=== PATIENT | female | born 1995 | race Hispanic/Latino ===

== ENCOUNTER → 2017-12-22 13:55 | Outpatient (CLI) | payer SELFPAY ==
[2017-12-22 17:51] LABS: Chlamydia Trachomatis by PCR Negative (Negative); Neisserai gonorrhoeae by PCR Negative (Negative); Probe Check PASS; Sample Adequacy Control PASS; Specimen Processing Control PASS
[2017-12-29 11:59] LABS: HPV Reflexed? NOT INDICATED
== END ==
PROVIDERS: Visit Provider Obstetrics & Gynecology
DX: Z12.4 Encounter for screening for malignant neoplasm of cervix (principal)
CPT/HCPCS: 87491; 87591; 88175; G0145

== ENCOUNTER → 2018-11-02 13:52 | Outpatient (CLI) | payer SELFPAY ==
[2018-11-02 16:10] LABS: Chlamydia Trachomatis by PCR Negative (Negative); Neisserai gonorrhoeae by PCR Negative (Negative); Probe Check PASS; Sample Adequacy Control PASS; Specimen Processing Control PASS
[2018-11-06 19:55] LABS: HPV Reflexed? NOT INDICATED
== END ==
PROVIDERS: Visit Provider Obstetrics & Gynecology
DX: Z34.81 Encounter for supervision of other normal pregnancy, first trimester (principal); Z12.4 Encounter for screening for malignant neoplasm of cervix; Z11.3 Encounter for screening for infections with a predominantly sexual mode of transmission
CPT/HCPCS: 87491; 87591; 88175; G0145

== ENCOUNTER → 2018-11-16 11:48 | Outpatient (CLI) | payer SELFPAY ==
[2018-11-16 13:42] LABS: Absolute Lymphocyte Count 1.61 X10^3/ul (0.83-4.51); Absolute Neutrophil Count 5.8 X10^3/uL (2.0-7.7); Basophil# 0.02 X10^3/uL; Basophil% 0.3 % (0-1); Eosinophil# 0.02 X10^3/uL; Eosinophils% 0.3 % (0-5); Hemoglobin 13.5 g/dl (12.0-15.0); Lymphocyte # 1.61 X10^3/ul (4.0); Lymphocyte % 20.4 % (19-41); Mean Corp Hgb Conc 33.8 g/gl (32-36); Mean Corpuscular Hgb 31.2 pg (27.0-32.0); Mean Corpuscular Volume 92.4 fL (81-99); Mean Platelet Vol. 9.2 fl (6.2-12.0); Monocyte# 0.44 X10^3/uL; Monocyte% 5.6 % (0-10); Neutrophil # 5.77 X10^3/uL (2.7-7.7); Platelet Count 237 K/mm3 (150-450); RBC Distribution Width CV 12.4 % (11.6-14.6); RBC Distribution Width SD 41.5 fl (35.1-43.9); Red Blood Count 4.33 M/mm3 (4.2-5.4); White Blood Count 7.9 K/mm3 (4.4-11.0)
[2018-11-16 13:43] LABS: Color, Urine Yellow (Yellow); Glucose, Dipstick Normal (Normal); Ketone-Dipstick Negative (Negative); Leukocyte Esterase-Dipstick Negative /ul (Negative); Nitrite-Dipstick Negative (Negative); Occult Blood-Urine Negative /ul (Negative); POSITIVE COUNT NO; POSITIVE DIFFERENTIAL NO; POSITIVE MORPHOLOGY NO; Protein-Dipstick 15 mg/dl (Negative); Specific Gravity, Urine 1.015 (1.002-1.030); Urine Bilirubin Dipstick Negative (Negative); Urine Clarity Clear (Clear); Urine Urobilinogen Normal (Normal)
[2018-11-16 13:58] LABS: Amphetamine Urine VISTA NEGATIVE (<1000 ng/mL); Barbiturate Urine VISTA NEGATIVE (< 200 ng/mL); Benzodiazepine Urine VISTA NEGATIVE (< 200 ng/mL); Cocaine Urine VISTA NEGATIVE (< 300 ng/mL); Ecstacy Urine VISTA NEGATIVE (< 500 ng/mL); Methadone Urine VISTA NEGATIVE (< 300 ng/mL); PCP Urine VISTA NEGATIVE (< 25 ng/mL); THC Urine VISTA NEGATIVE (< 50 ng/mL); Vista UDS pH Range 7
[2018-11-16 14:04] LABS: Thyroid Stim Hormone (TSH) 0.98 uIU/mL (0.358-3.74)
[2018-11-16 14:44] LABS: HIV - WCH Non-Reactive (Nonreactive); Rubella IgG 37.7 IU/mL
[2018-11-17 11:25] LABS: HEPATITIS B SURFACE AG Negative (Negative); Hep C Antibodies <0.1 s/co ratio (0.0-0.9)
[2018-11-19 01:10] LABS: Prenatal RPR NONREACTIVE (NONREACTIVE)
--- OUTSIDE RECORDS SUMMARY | 2019-01-18 15:42 | XMS RPT_ITS ---
:1995 Author Organization OHIP Care Team Providers Name Role Phone Alvina Jo Attending Unavailable Alvina Jo Unavailable Alvina Jo Unavailable PROBLEMS PROBLEMS DATE TYPE CONDITION / CODE ATTENDING STATUS SOURCE 11/16/2018 Unknown Z34.81 - Encounter Alvina Jo Active [place] for supervision of Community other normal Hospital , first Repository trimester / Z34.81(ICD-10) 11/03/2018 Unknown Z12.4 - Encounter Alvina Jo Active [place] for screening for Community malignant neoplasm Hospital of cervix / Repository Z12.4(ICD-10) 11/03/2018 Unknown Z11.3 - Encounter Alvina Jo for screening for Community infections with a Hospital predominantly Repository sexual mode of transmission / Z11.3(ICD-10) PROCEDURES PROCEDURES No Procedure Records FoundRESULTS RESULTS URINE DRUG SCREEN Collected: 11/16/2018 Status: F Source: [place] ([place]) 11:51 AM [facility] HOSPITAL REPOSITORY Order Comment: List of Drugs Taken or Suspected? UNK TYPE CODE TESTS RESULT OUT OF RANGE REFERENCE UNITS LAB L505.0075 TO BE Normal CONFIRMED Result Comment: CONFIRMATORY TESTING FOR ALL POSITIVE URINE DRUG SCREEN RESULTS WILL ONLY BE SENT OUT UPON PHYSICIAN ORDER. VISTA Urine Drug Screen methods provide only preliminary analytical test results. A more specific alternate chemical method must be used in order to obtain a confirmed analytical result. Gas chromatography/mass spectrometery (GC/MS) is the preferred confirmatory method. Clinical consideration and professional judgement should be applied to any drug of abuse test result, particularly when preliminary positive results are used. URINE TCA TESTING MUST BE ORDERED SEPARATELY. USE TEST MNEMONIC: [facility] LAB L505.5005 VISTA UDS PH 7 Normal LAB L505.5015 <1000 ng/mL AMPHETAMINES Normal NEGATIVE LAB L505.5025 < 200 ng/mL BARBITIURATES Normal NEGATIVE LAB L505.5035 < 200 ng/mL BENZODIAZIPINE Normal NEGATIVE LAB L505.5045 < 300 ng/mL COCAINE Normal NEGATIVE LAB L505.5055 < 500 ng/mL ECSTACY Normal NEGATIVE LAB L505.5065 < 300 ng/mL METHADONE Normal NEGATIVE LAB L505.5075 < 300 ng/mL OPIATES Normal NEGATIVE LAB L505.5085 < 25 ng/mL PCP Normal NEGATIVE LAB L505.5095 < 50 ng/mL THC Normal NEGATIVE Performed By: #### L505.5000 #### [facility] [address] [place], [address] CBC W/DIFF, AUTOMATED Collected: 11/16/2018 Status: F Source: [place] 11:51 AM [facility] REPOSITORY TYPE CODE TESTS RESULT OUT OF RANGE REFERENCE UNITS LAB L100.1000 4.4-11.0 K/mm3 Normal WBC 7.9 LAB L100.1200 4.2-5.4 M/mm3 Normal RBC 4.33 LAB L100.1300 12.0-15.0 g/dl Normal HGB 13.5 LAB L100.1400 37-47 % Normal HCT 40.0 LAB L100.1500 81-99 fL Normal MCV 92.4 LAB L100.1600 27.0-32.0 pg Normal MCH 31.2 LAB L100.1700 32-36 g/gl Normal MCHC 33.8 LAB L100.1810 11.6-14.6 % Normal RDW CV 12.4 LAB L100.1820 35.1-43.9 fl Normal RDW SD 41.5 LAB L100.1900 150-450 K/mm3 Normal PLT 237 LAB L100.2000 6.2-12.0 fl Normal MPV 9.2 LAB L100.2100 47-70 % High NEUT% 73.0 LAB L100.2200 19-41 % Normal LY% 20.4 LAB L100.2300 0-10 % Normal MONO% 5.6 LAB L100.2400 0-5 % Normal EO% 0.3 LAB L100.2500 0-1 % Normal BASO% 0.3 LAB L100.2550 0.0-0.9 % Normal IM GRAN % 0.400 Result Comment: IG% - Immature Granulocytes (promyelocytes, myelocytes and metamyelocytes) > 1% indicates that a LEFT SHIFT is Present. LAB L100.2620 2.0-7.7 X10 3/uL Normal Absolute Neut 5.8 LAB L100.2720 0.83-4.51 X10 3/ul Normal Absolute Lymph 1.61 Performed By: #### L100.0100 #### [facility] [address] [facility] [place], [place], [address] URINALYSIS, ROUTINE Collected: 11/16/2018 Status: F Source: [place] (DIPSTICK) 11:51 AM [facility] REPOSITORY Order Comment: How was Urine Obtained? Urine, Random TYPE CODE TESTS RESULT OUT OF RANGE REFERENCE UNITS LAB L400.3000 Yellow COLOR Normal Yellow LAB L400.3050 Clear Normal CLARITY Clear LAB L400.3200 Normal mg/dl Normal GLUCOSE, UR Normal LAB L400.3300 Negative mg/dL Normal BILIRUBIN URINE Negative LAB L400.3400 Negative mg/dl Normal KETONE UR Negative LAB L400.3465 1.002-1.030 Normal SP.GR. DIPSTX 1.015 LAB L400.3550 5.0 - 8.0 pH UR Normal 8.0 LAB L400.3600 Negative mg/dl High PROT 15 DIPSTX LAB L400.3700 Normal mg/dl Normal UROBILI Normal LAB L400.3750 Negative Normal NITRITE UR Negative LAB L400.3780 Negative /ul Normal OCCULT BLOOD-UR Negative LAB L400.3800 Negative /ul LEUK Normal ESTERASE Negative Performed By: #### L400.2010 #### [facility] [address] [place], [place], [address] THYROID STIM HORMONE Collected: 11/16/2018 Status: F Source: [place] (TSH) 11:51 AM [facility] REPOSITORY TYPE CODE TESTS RESULT OUT OF RANGE REFERENCE UNITS LAB L501.9520 0.358-3.74 uIU/mL Normal TSH 0.98 Performed By: #### L501.9520 #### [facility] [address] [place], [address] RUBELLA IGG Collected: 11/16/2018 Status: F Source: [place] 11:51 AM [facility] REPOSITORY TYPE CODE TESTS RESULT OUT OF RANGE REFERENCE UNITS LAB L509.4000 IU/mL Normal Rubella IgG 37.7 Result Comment: Antibody results Interpretation of Immune Status < 5 IU/ml Presumed Non-immune 5 - < 10 IU/ml Equivocal > or = 10 IU/ml Presumed Immune Performed By: #### L509.4000, L3890.6005 #### [facility] [address] [place], [address] HIV - [facility] Collected: 11/16/2018 Status: F Source: [place] 11:51 AM [facility] REPOSITORY TYPE CODE TESTS RESULT OUT OF RANGE REFERENCE UNITS LAB L3890.6005 Nonreactive Normal HIV - [facility] Non-Reactive Performed By: #### L509.4000, L3890.6005 #### [facility] [place], [address] T AND S-NO Collected: 11/16/2018 Status: F Source: [place] CHARGE W/PNP 11:51 AM [facility] REPOSITORY Order Comment: Reason for Type AND Screen/Red Cells: Surgery? N TYPE CODE TESTS RESULT OUT OF RANGE REFERENCE UNITS LAB B10.0800 O Normal BLOOD NEGATIVE TYPE GEL LAB B100.4050 Normal Ab SCREEN NEGATIVE GEL Performed By: #### B100.7550 #### [facility] [facility] [place], [address] HEPATITIS B SURFACE Collected: 11/16/2018 Status: F Source: [place] 11:51 AM [facility] REPOSITORY TYPE CODE TESTS RESULT OUT OF RANGE REFERENCE UNITS LAB L3100.0400 Negative Normal HB Negative SURF AG Result Comment: Performed at: - [facility] [id number] Tax Accounting Assistant: Braden Joy PhD, Phone: [phone] Performed By: #### L3100.0390, L3100.0625 #### [facility] (refer to report for specific site) refer to report for address and phone number HEPATITIS C ANTIBODIES Collected: 11/16/2018 Status: F Source: [place] 11:51 AM [facility] REPOSITORY TYPE CODE TESTS RESULT OUT OF RANGE REFERENCE UNITS LAB L3100.0650 0.0-0.9 s/co ratio Normal HEP C AB <0.1 Result Comment: Negative: < 0.8 Indeterminate: 0.8 - 0.9 Positive: > 0.9 The CDC recommends that a positive HCV antibody result be followed up with a HCV Nucleic Acid Amplification test (113954). Performed By: #### L3100.0390, L3100.0625 #### [facility] (refer to report for specific site) refer to report for address and phone number RPR Collected: 11/16/2018 Status: F Source: [place] 11:51 AM [facility] REPOSITORY TYPE CODE TESTS RESULT OUT OF REFERENCE UNITS RANGE LAB L700.5100 NONREACTIVE Normal RPR NONREACTIVE Performed By: #### L700.5100 #### [facility] [address] [place], [address] CT/NG [facility] BY PCR Collected: 11/02/2018 Status: F Source: [place] 11:15 AM [facility] REPOSITORY TYPE CODE TESTS RESULT OUT OF RANGE REFERENCE UNITS LAB L8200.2100 Negative Normal Chlam Negative Trac PCR LAB L8200.2200 Negative Normal NG by Negative PCR Performed By: #### L8200.2000 #### [facility] [address] [place], [address] PAP I-G W/RFX HRHPV Collected: 11/02/2018 Status: F Source: [place] 11:15 AM [facility] REPOSITORY Order Comment: CYTOLOGY INFORMATION: - CLINICAL INFORMATION: - DATE LMP/MENOPAUSE: - COLLECTION VIAL: Thin Prep Vial - COMPUTER METEOROLOGIST SOURCE: CERVICAL/ENDOCERVICAL - COLLECTION TECHNIQUE: BRUSH/SPATULA Specimen Comment: [id number] Specimen Comment: Source.............Cervix;Endocervix Specimen Comment: No. of containers..01 ThinPrep Vial TYPE CODE TESTS RESULT OUT OF RANGE REFERENCE UNITS LAB L7400.0800 . Normal DIAGN Comment Result Comment: NEGATIVE FOR INTRAEPITHELIAL LESION AND MALIGNANCY. THIS SPECIMEN WAS RESCREENED PART OF OUR BLIND EYELETTER PROGRAM. LAB L7400.0900 . Normal ADEQ Comment Result Comment: Satisfactory for evaluation. Endocervical and/or squamous metaplastic cells (endocervical component) are present. LAB L7400.1400 . Normal PERFORM Comment Result Comment: Sheila Gorman, Tap Out Operator LAB L7400.1500 . Normal QC Comment REV Result Comment: Lizbeth Valverde, Supervisory Tap Out Operator (ASCP) LAB L7400.2575 . Normal TEST METHOD Comment Result Comment: This liquid based ThinPrep(R) pap test was screened with the use of an image guided system. LAB L7400.2600 . Normal . COMM LAB L7400.2700 . Normal PAPSMR Comment Result Comment: The Pap smear is a screening test designed to aid in the detection of premalignant and malignant conditions of the uterine cervix. It is not a diagnostic procedure and should not be used as the sole means of detecting cervical cancer. Both false-positive and false-negative reports do occur. LAB L7400.2800 . Normal HPV RFLX Comment Result Comment: The HPV DNA reflex criteria were not met with this specimen result therefore, no HPV testing was performed. Performed at: [address] [id number] Tax Accounting Assistant: Jud Naik MD, Phone: [phone] Performed By: #### L7400.0350 #### [facility] (refer to report for specific site) refer to report for address and phone number CT/NG [facility] BY PCR Collected: 12/22/2017 Status: F Source: [place] 9:45 AM [facility] REPOSITORY TYPE CODE TESTS RESULT OUT OF RANGE REFERENCE UNITS LAB L8200.2100 Negative Normal Chlam Negative Trac PCR LAB L8200.2200 Negative Normal NG by Negative PCR Performed By: #### L8200.1999 #### [facility] [address] [place], [address] PAP I-G W/RFX HRHPV Collected: 12/22/2017 Status: F Source: [place] 9:45 AM [facility] REPOSITORY Order Comment: CYTOLOGY INFORMATION: - CLINICAL INFORMATION: - DATE LMP/MENOPAUSE: 02/16/18 LMP - COLLECTION VIAL: Thin Prep Vial - COMPUTER METEOROLOGIST SOURCE: CERVICAL/ENDOCERVICAL - COLLECTION TECHNIQUE: BRUSH/SPATULA Specimen Comment: [id number] Specimen Comment: No. of containers..01 ThinPrep Vial TYPE CODE TESTS RESULT OUT OF REFERENCE UNITS RANGE LAB L7400.0800 . High DIAGN Comment Result Comment: EPITHELIAL CELL ABNORMALITY. LOW-GRADE SQUAMOUS INTRAEPITHELIAL LESION (LGSIL); MILD DYSPLASIA IS PRESENT. LAB L7400.0900 . Normal ADEQ Comment Result Comment: Satisfactory for evaluation. Endocervical and/or squamous metaplastic cells (endocervical component) are present. LAB L7400.1400 . Normal PERFORM Comment Result Comment: Herber Uribe, Tap Out Operator (ASCP) LAB L7400.1700 . Normal SIGN Comment Result Comment: Ellen Melo MD, Pathologist LAB L7400.1720 . Normal Path prov. Comment ICD9 Result Comment: R87.612 LAB L7400.2575 . Normal TEST METHOD Comment Result Comment: This liquid based ThinPrep(R) pap test was screened with the use of an image guided system. LAB L7400.2600 . Normal . COMM LAB L7400.2700 . Normal PAPSMR Comment Result Comment: The Pap smear is a screening test designed to aid in the detection of premalignant and malignant conditions of the uterine cervix. It is not a diagnostic procedure and should not be used as the sole means of detecting cervical cancer. Both false-positive and false-negative reports do occur. LAB L7400.2800 . Normal HPV RFLX Comment Result Comment: The HPV DNA reflex criteria were not met with this specimen result therefore, no HPV testing was performed. Performed at: [facility] [place] [id number] Tax Accounting Assistant: Ellen Melo MD, Phone: [phone] Performed at: [address] [id number] Tax Accounting Assistant: Jud Naik MD, Phone: [phone] Performed By: #### L7400.0350 #### [facility] (refer to report for specific site) refer to report for address and phone number ALLERGIES ALLERGIES No Allergies Records FoundENCOUNTERS ENCOUNTERS ADMIT/DISCHARGE ACCOUNT ADMITTING ENCOUNTER LOCATION SOURCE NUMBER CLASS 11/16/2018 [id number] Ambulatory [place] [address] [facility] ing:WOBLAB Repository 11/02/2018 [id number] Ambulatory [place] [facility] ing:[facility] Repository 12/22/2017 [id number] Ambulatory [place] [address] [facility] ing:[facility] Repository PAYERS PAYERS ENCOUNTER GUARANTOR PAYER SUBSCRIBER SOURCE 11/16/2018 JESS Primary NOT GIVENUNK [place] [id number] Insurance:SELF PAY [facility], [place] Number: Effective Repository [id number]: [phone]) Date:2018-11-16 [id number] () 11/02/2018 JESS Primary NOT GIVENUNK [place] [id number] Insurance:SELF PAY [facility] [place] Number: Effective Repository [phone]: [phone] Date:2018-11-02 [id number] () 12/22/2017 JESS Primary NOT GIVENUNK [place] [id number] Insurance:SELF PAY [facility] [place] Number: Effective Repository [id number]: [phone] Date:2017-12-22 [id number] ()
== END ==
PROVIDERS: Visit Provider Obstetrics & Gynecology
DX: Z34.81 Encounter for supervision of other normal pregnancy, first trimester (principal)
CPT/HCPCS: 36415; 80307; 81002; 84443; 85025; 86703; 86762; 86803; 87340

== ENCOUNTER → 2019-04-05 | Outpatient (CLI) | payer SELFPAY ==
[2019-04-05 13:54] LABS: Hemoglobin 13.2 g/dl (12.0-15.0); Mean Corp Hgb Conc 34.7 g/gl (32-36); Mean Corpuscular Hgb 32.6 pg (27.0-32.0); Mean Corpuscular Volume 93.8 fL (81-99); Mean Platelet Vol. 9.5 fl (6.2-12.0); Platelet Count 282 K/mm3 (150-450); RBC Distribution Width CV 13.4 % (11.6-14.6); RBC Distribution Width SD 44.4 fl (35.1-43.9); Red Blood Count 4.05 M/mm3 (4.2-5.4); White Blood Count 7.7 K/mm3 (4.4-11.0)
[2019-04-05 13:55] LABS: Scan Indicated on CBC? Y/N NO
[2019-04-05 13:58] LABS: Glucose Challenge Gest 1H 50g 99 mg/dL (70-140)
== END | disposition home or self-care (01) ==
PROVIDERS: Visit Provider Obstetrics & Gynecology
DX: Z34.83 Encounter for supervision of other normal pregnancy, third trimester (principal)
CPT/HCPCS: 36415; 82950; 85027; 86850

== ENCOUNTER → 2019-05-24 | Outpatient (CLI) | payer SELFPAY | END | disposition home or self-care (01) | LOC: LABSPEC 16:59 | PROVIDERS: Visit Provider Obstetrics & Gynecology | DX: Z36.85 Encounter for antenatal screening for Streptococcus B (principal) | CPT/HCPCS: 87081 ==

== ENCOUNTER 2019-06-07 11:50 | Inpatient (IN) | payer SELFPAY ==
[2019-06-07] MEDS: Lactated Ringers 1,000 ML 50 ML IV ×2 (12:15→18:45)
[2019-06-07 12:33] LABS: Absolute Lymphocyte Count 1.53 X10^3/uL (0.83-4.51); Absolute Neutrophil Count 4.5 X10^3/uL (2.0-7.7); Basophil# 0.03 X10^3/uL; Basophil% 0.5 % (0-1); Eosinophil# 0.04 X10^3/uL; Eosinophils% 0.6 % (0-5); Hematocrit 36.9 % (37-47); Hemoglobin 12.8 g/dL (12.0-15.0); Lymphocyte # 1.53 X10^3/ul (4.0); Lymphocyte % 23.4 % (19-41); Mean Corp Hgb Conc 34.7 g/dL (32-36); Mean Corpuscular Hgb 32.5 pg (27.0-32.0); Mean Corpuscular Volume 93.7 fL (81-99); Mean Platelet Vol. 9.8 fl (6.2-12.0); Monocyte# 0.44 X10^3/uL; Monocyte% 6.7 % (0-10); NRBC Flagged by Analyzer 0 % (0-5); Neutrophil # 4.47 X10^3/uL (2.7-7.7); Neutrophil % 68.5 % (47-70); Platelet Count 240 K/mm3 (150-450); RBC Distribution Width CV 12.8 % (11.6-14.6); RBC Distribution Width SD 43.5 fl (35.1-43.9); Red Blood Count 3.94 M/mm3 (4.2-5.4); White Blood Count 6.5 K/mm3 (4.4-11.0)
[2019-06-07 12:58] VITALS: BMI 24.6
[2019-06-07 13:20] LABS: ROM Internal Control Test YES-OK TO RESULT pt. (Internal QC)
[2019-06-07] MEDS: 0.9% Normal Saline 100 ML IV.SOLN. INTRA-UTER (13:35)
[2019-06-07 13:39] LABS: ROM Patient Test Negative (Negative)
[2019-06-07] MEDS: Oxytocin 30 units/NS 500 ml 30 UNITS/500 ML IV.SOLN IV (13:43)
[2019-06-07] MEDS: Ondansetron 4 MG/2 ML Vial IV (18:04)
--- NOTE | 2019-06-07 18:05 | HP.PCM_ITS ---
History and Physical Date of Admission: 06/07/19 OB HISTORY AND PHYSICAL EXAMINATION History of this : 24 yo female Ab0 with EDC 06/18/2019 by 9 weeks 3 days Ultrasound, presents to Labor and Delivery for induction of labor due to oligo, BELEN 3 cm. AGA. care remarkable for - O negative. Rubella immune. GBS negative. 1.) Oligo, start weekly NST 2.) L sided migraine tylenol ineffective 3.) , had a second cousin with unknown developmental delays Pertinent Past Medical History: None. Allergies: No Known Drug Allergies Medications: During - Multi For Her 18 mg iron-600 mcg-80 mcg tablet; ubslnbpjro-yfxtrab-vlzzosvz 50 mg-325 mg-40 mg table Review of Systems: Pelvic pressure. PHYSICAL EXAMINATION General Appearance: 24 yo female in no acute distress Vital Signs: AF, VSS Heart: RRR without rubs or gallops Lungs: CTA x 2 Breasts: deferred Abdomen: gravid Pelvis: Cervix: 2/80/ -2 mod consistency , slightly posterior AROM scant clear fluid. Presentation: cephalic Station: Size: AGA Movement: present Heart: 130-140s avg variability Accels. Category I tracing. UCs irregular. now to q 2- 3 Impression /Plan: Intrauterine . Induction for oligohydramnios 3 cm BELEN. Planned Nayak bulb and Pitocin but cervical admission favorable for AROM. AROM Pitocin plan raffaele. Category I tracing. Continue labor Watch progress, descent. H and P generated at time of admission and documented a few hrs later. See progress notes for changes. Mary Jo MD 06/07/19 [id number]
[2019-06-07] MEDS: Lactated Ringers 1,000 ML 999 ML IV ×2 (18:06→20:37)
[2019-06-07] MEDS: fentaNYL-bupivacaine (epidural) 100 ML BAG EPIDURAL (18:47)
[2019-06-07] MEDS: Amnioinfusion- 0.9% NS 1,000 ML IV.SOLN. INTRA-UTER (20:36)
[2019-06-07] MEDS: Oxytocin 30 units/NS 500 ml 30 UNITS/500 ML IV.SOLN 334 UNITS IV (22:58)
--- NOTE | 2019-06-07 23:03 | DCINST_ITS ---
Discharge Diet: No Restrictions Discharge Activity: May Shower, May Take a Tub Bath May resume sexual activity in: 4-6 weeks Additional Activity Instructions:: Nothing in the vagina for 4-6 weeks. You may return to work/school in 6 weeks. Additional Instructions: If you experience any of the following, contact your healthcare provider. * Bleeding that soaks a pad every hour for 2 hours * Fever 100.4 or higher * Unrelieved abdominal pain * Problems urinating (including inability to urinate or burning while urinating). * Visual changes * Severe headache * Flu-like symptoms * Pain or redness in one of both of your breasts * Pain, warmth, tenderness or swelling in your legs, especially the calf area * Frequent nausea and vomiting * Symptoms of depression or anxiety If you experience any of the following, call 911 or go to the nearest Emergency Room. * Chest pain * Problems breathing * Seizure activity * Partial or complete paralysis of a body part, slurred speech, weakness or drooping of the face, or a sudden inability to walk or hold your balance Allergies/Adverse Reactions: Allergies No Known Allergies Allergy (Unverified 06/07/19 12:24) Medications to take at Discharge Doxylamine Succinate [Unisom] 50 mg PO BID 06/07/19 Pnv No.103/Folic/Om3s/Fish Oil [ Gummies] 2 ea PO DAILY 06/07/19 Pyridoxine HCl (Vitamin B6) [Vitamin B-6] 50 mg PO BID 06/07/19 Please Follow Up With: Alvina Jo MD - [phone] When: Call to make an appointment with your doctor in 6 weeks. Test Results: Test results from this visit will be discussed in further detail at your follow- up appointment, if applicable. Proposed Discharge Date: 06/09/19
--- NOTE | 2019-06-07 23:03 | PCM.DCVAG ---
Discharge Diet: No Restrictions Discharge Activity: May Shower, May Take a Tub Bath May resume sexual activity in: 4-6 weeks Additional Activity Instructions:: Nothing in the vagina for 4-6 weeks. You may return to work/school in 6 weeks. Additional Instructions: If you experience any of the following, contact your healthcare provider. Bleeding that soaks a pad every hour for 2 hours Fever 100.4 or higher Unrelieved abdominal pain Problems urinating (including inability to urinate or burning while urinating). Visual changes Severe headache Flu-like symptoms Pain or redness in one of both of your breasts Pain, warmth, tenderness or swelling in your legs, especially the calf area Frequent nausea and vomiting Symptoms of depression or anxiety If you experience any of the following, call 911 or go to the nearest Emergency Room. Chest pain Problems breathing Seizure activity Partial or complete paralysis of a body part, slurred speech, weakness or drooping of the face, or a sudden inability to walk or hold your balance Allergies/Adverse Reactions: Allergies No Known Allergies Allergy (Unverified 06/07/19 12:24) Medications to take at Discharge Doxylamine Succinate [Unisom] 50 mg PO BID 06/07/19 Pnv No.103/Folic/Om3s/Fish Oil [ Gummies] 2 ea PO DAILY 06/07/19 Pyridoxine HCl (Vitamin B6) [Vitamin B-6] 50 mg PO BID 06/07/19 Please Follow Up With: Alvina Jo MD - [phone] When: Call to make an appointment with your doctor in 6 weeks. Test Results: Test results from this visit will be discussed in further detail at your follow-up appointment, if applicable. Proposed Discharge Date: 06/09/19
--- NOTE | 2019-06-07 23:04 | PCM.OPRPT ---
Vaginal Delivery Maternal Presentation: Medically Indicated Induction oligohydramnios at 38 3/7 wk EGA Method of Induction: Pitocin, Amniotomy Amniotic Membrane Rupture Type: Artificial Amniotic Fluid Description: Clear Final BRADLEY: 06/18/19 Final BRADLEY Source: US <20 weeks Gestational age: 38 Weeks and 3 Days Date of Procedure: 06/07/19 Pre-Operative Diagnosis: 38 3/7 wk oligo induction Post-Operative Diagnosis: same Surgery/ Procedure Performed: Spontaneous Vaginal Delivery Type of Anesthesia: Epidural Description of Procedure: of a love viable female over intact perineum Head delivered RAEANN. No nuchal cord, shoulders delivered easily. OP and nares bulb suctioned at perineum. to maternal abdomen with spont cry. Delayed cord clamping . Cord clamped times two and cut. Routine cord blood for typing obtained. PP exam; no lacerations Placenta delivered by spont expulsion, expression. normal appearing intact with trailing membranes. 3V cord Ray Zenaida counts correct times two patient and tolerated delivery well. To recovery, stable condition. Presentation: Vertex, RAEANN Placental Delivery Description: Spontaneous, Expressed Placenta Disposition: [facility] Cord Vessel Description: 3 Vessels Cord Entanglement: None Drain: Nayak to straight drain Estimated Blood Loss: 150 Infant A gender: Female (1 minute): 9 (5 minute): 9 Episiotomy Description: None Laceration: None Medications given after delivery: IV Pitocin Complications: None
[2019-06-07] MEDS: Oxytocin 30 units/NS 500 ml 30 UNITS/500 ML IV.SOLN 167 UNITS IV (23:28)
[2019-06-08] MEDS: 0.9% Saline Lock 10 ML Syringe IV (00:50)
[2019-06-08 01:10] VITALS: BP 123/79; PULSE 63; RESP 14; TEMP 36.1; O2SAT 97
[2019-06-08 03:40] VITALS: BP 121/81; PULSE 61; RESP 16; TEMP 36.3
--- NOTE | 2019-06-08 06:12 | PN.OBGYN_ITS ---
Subjective: PPD#1 Doing well. Nursing. Baby wt 6# 12 oz no concerns voiced. Minimal cramping, and no pain med - Physical Exam General: Alert, Oriented x3, Cooperative, No apparent distress HEENT: Atraumatic, EOMI Neck: Supple Abdomen: Soft - Fundus firm NT at inferior to umbilicus Psych/Mental Status: Normal Affect Vital Signs Temp Pulse Resp BP Pulse Ox 97.4 F L 61 16 121/81 H 97 06/08/19 03:40 06/08/19 03:40 06/08/19 03:40 06/08/19 03:40 06/08/19 01:10 Oxygen Delivery Method Room Air Weight: 75.6 kg Body Mass Index (BMI) 24.6 Intake and Output for Last 24 Hours 06/06/19 06/07/19 06/08/19 23:59 23:59 23:59 Intake Total 1796 / 1796 2024 / 2024 Output Total 1400 / 1400 1700 / 1700 Balance 396 / 396 325 / 325 Laboratory Tests Past 24 Hrs 06/07/19 06/07/19 06/07/19 12:15 12:15 13:10 WBC 6.5 RBC 3.94 L Hgb 12.8 Hct 36.9 L MCV 93.7 MCH 32.5 H MCHC 34.7 RDW Std Deviation 43.5 RDW Coeff of [place] 12.8 Plt Count 240 MPV 9.8 Immature Gran % (Auto) 0.300 Neut % (Auto) 68.5 Lymph % (Auto) 23.4 [place] % (Auto) 6.7 Eos % (Auto) 0.6 Baso % (Auto) 0.5 Absolute Neuts (auto) 4.5 Absolute Lymphs (auto) 1.53 Nucleated RBC % 0 Vag Amniotic Fld Detect Negative Blood Type O NEGATIVE Antibody Screen NEGATIVE Screen Baby's Blood Type Baby's COLIN 06/08/19 00:06 WBC RBC Hgb Hct MCV MCH MCHC RDW Std Deviation RDW Coeff of Oh Plt Count MPV Immature Gran % (Auto) Neut % (Auto) Lymph % (Auto) [place] % (Auto) Eos % (Auto) Baso % (Auto) Absolute Neuts (auto) Absolute Lymphs (auto) Nucleated RBC % Vag Amniotic Fld Detect Blood Type Antibody Screen Screen NEGATIVE Baby's Blood Type A POSITIVE Baby's COLIN NEGATIVE Medical Necessity - Tobacco Use Smoking Status: Former smoker Assessment/Plan PPD#1 Stable . Continue routine PP care O neg and A positive RhoGAM
[2019-06-08] MEDS: Ibuprofen 600 MG Tablet PO ×3 (08:00→20:46)
[2019-06-08 08:32] VITALS: BP 120/68; PULSE 65; RESP 16; TEMP 36.6
[2019-06-08] MEDS: Acetaminophen 500 MG Tablet 1000 MG PO (09:26)
[2019-06-08 11:45] VITALS: BP 123/79; PULSE 68; RESP 16; TEMP 36.6
[2019-06-08 16:01] VITALS: BP 119/77; PULSE 59; RESP 16; TEMP 37.1
[2019-06-08 19:50] VITALS: BP 128/76; PULSE 73; RESP 16; TEMP 36.9
[2019-06-09 02:08] VITALS: BP 114/65; PULSE 61; RESP 18; TEMP 36.4
[2019-06-09 08:33] VITALS: BP 124/72; PULSE 65; RESP 16; TEMP 36.4; O2SAT 97
--- NOTE | 2019-06-09 08:59 | PCM.PN.OB ---
Subjective: Has questions about home activity level. Has cramping, but tolerable. Denies heavy lochia. Infant nursing well. Objective: avss - Physical Exam General: Alert, Oriented x3, Cooperative HEENT: Atraumatic, Normocephalic Lungs: Normal air movement Cardiovascular: Regular rate, Regular Rhythm, Normal S1, Normal S2 Abdomen: Soft, Non Tender, Non-Distended, - - fundus firm and nontender Extremities: No edema, No Calf Tenderness Neurological: Neuro grossly intact Psych/Mental Status: Normal Affect, Appropriate, Alert and oriented to time, place, person, mood and affect Vital Signs Temp Pulse Resp BP Pulse Ox 97.5 F L 65 16 124/72 H 97 06/09/19 08:33 06/09/19 08:33 06/09/19 08:33 06/09/19 08:33 06/09/19 08:33 Oxygen Delivery Method Room Air Weight: 75.6 kg Body Mass Index (BMI) 24.6 Intake and Output for Last 24 Hours 06/07/19 06/08/19 06/09/19 23:59 23:59 23:59 Intake Total 1796 / 1796 2024 Output Total 1400 / 1400 2600 / 2600 Balance 396 / 396 -575 / -575 Medical Necessity - Tobacco Use Smoking Status: Former smoker Assessment/Plan 24yo PPD#2 s/p doing well. -Rh negative - s/p Rhogam -D/c home today.
[2019-06-09 12:19] VITALS: BP 129/75; PULSE 63; RESP 16; TEMP 36.6; O2SAT 97
[2019-06-09] MEDS: Ibuprofen 600 MG Tablet PO (12:39)
== END 2019-06-09 13:50 | disposition home or self-care (01) | DRG 806 ==
PROVIDERS: Admitting Provider Obstetrics & Gynecology; Referring Provider Obstetrics & Gynecology; Visit Provider Obstetrics & Gynecology
DX: O41.03X0 Oligohydramnios, third trimester, not applicable or unspecified (principal); O99.354 Diseases of the nervous system complicating childbirth; Z37.0 Single live birth; G43.909 Migraine, unspecified, not intractable, without status migrainosus; Z3A.38 38 weeks gestation of pregnancy; Z87.891 Personal history of nicotine dependence
CPT/HCPCS: 59025; 59050; 84112; 85025; 85461; 86850; 86900; 86901; 90384; 99218; J7030; J7120; A4216; G0378; J2405; J2790

== ENCOUNTER → 2020-08-07 08:56 | Outpatient (CLI) | payer SELFPAY ==
--- NOTE | 2020-08-07 09:01 | BI_ITS ---
MAMMOGRAPHY - BILATERAL DIAGNOSTIC REASON FOR EXAM: Female, 25 years old. One-year history of left breast lump. The patient has been nursing and stopped one week ago. PERTINENT HISTORY: Non-contributory. TECHNIQUE: Digital bilateral breast darci (3D mammographic acquisition) in the CC and MLO projections. 2-D mediolateral oblique (MLO) and craniocaudad (CC) views of both breasts were obtained. CAD: Full Field Digital Mammography with Computer Added Detection was performed. COMPARISON: None. Baseline examination. FINDINGS: Breast Composition: The breasts are extremely dense, which lowers the sensitivity of mammography. There are no dominant masses or suspicious calcifications. No other significant abnormalities are identified. BI/DIAG MAMM W/CAD, BILAT IMPRESSION: Negative diagnostic mammogram. With the patient''s history of a palpable lump in the left breast, correlation with ultrasound is recommended. ASSESSMENT CATEGORY: BIRADS Category 0: Incomplete. Need additional imaging evaluation. A letter regarding these results will be sent to the patient by the facility within 30 days. Approximately 10% of breast cancers are not detected by mammography. A normal mammogram should not delay biopsy of a clinically suspicious abnormality. Electronically Signed: Gilberto Jacobo, at 10:57 EDT , Service support ,
--- NOTE | 2020-08-07 09:01 | US_ITS ---
STUDY: ULTRASOUND BREAST - LEFT REASON FOR EXAM: Female, 25 years old. Palpable lump left breast. TECHNIQUE: Axial and longitudinal images of the LEFT breast were performed with a high resolution ultrasound transducer. # OF IMAGES: 10 COMPARISON: Comparison is made with prior mammogram done earlier in the day. FINDINGS: LEFT Breast: No solid or cystic mass lesion is seen. There is evidence of a dilated retroareolar duct. US/Breast Limited Unilateral IMPRESSION: Dilated retroareolar duct. ASSESSMENT CATEGORY: BIRADS Category 2: Benign. A letter regarding these results will be sent to the patient by the facility within 30 days. Electronically Signed: Gilberto Jacobo, at 10:59 EDT , Service support ,
== END ==
PROVIDERS: Referring Provider Student in an Organized Health Care Education/Training Program; Visit Provider Student in an Organized Health Care Education/Training Program
CPT/HCPCS: 76642; 77062; 77066; G0279

== ENCOUNTER → 2021-10-11 12:03 | Outpatient (CLI) | payer SELFPAY ==
[2021-10-11 12:20] LABS: Absolute Lymphocyte Count 1.62 X10^3/uL (0.83-4.51); Absolute Neutrophil Count 4.4 X10^3/uL (2.0-7.7); Basophil# 0.03 X10^3/uL; Basophil% 0.5 % (0-1); Eosinophil# 0.05 X10^3/uL; Eosinophils% 0.8 % (0-5); Hematocrit 38.2 % (37-47); Hemoglobin 12.6 g/dL (12.0-15.0); Lymphocyte # 1.62 X10^3/ul (0.83-4.51); Lymphocyte % 24.9 % (19-41); Mean Corpuscular Hgb 30.2 pg (27.0-32.0); Mean Corpuscular Volume 91.6 fL (81-99); Mean Platelet Vol. 8.4 fl (6.2-12.0); Monocyte# 0.39 X10^3/uL; NRBC Flagged by Analyzer 0 % (0-5); Neutrophil # 4.39 X10^3/uL (2.7-7.7); Neutrophil % 67.5 % (47-70); Platelet Count 282 K/mm3 (150-450); RBC Distribution Width CV 11.9 % (11.6-14.6); RBC Distribution Width SD 39.6 fl (35.1-43.9); Red Blood Count 4.17 M/mm3 (4.2-5.4); White Blood Count 6.5 K/mm3 (4.4-11.0)
[2021-10-11 14:19] LABS: HIV - WCH Non-Reactive (Nonreactive); Hepatitis B Surface Antigen Non-Reactive (Nonreactive); Hepatitis C Antibody Non-Reactive (Nonreactive); Rubella IgG Reactive (Nonreactive); Syphilis Antibodies Non-reactive
[2021-10-14 21:06] LABS: Chlamydia By Nucleic Acid AMP Negative (Negative)
[2021-10-14 23:10] LABS: Gonococcus By Nucleic Acid AMP Negative (Negative)
== END ==
PROVIDERS: Visit Provider Student in an Organized Health Care Education/Training Program
DX: Z34.81 Encounter for supervision of other normal pregnancy, first trimester (principal); Z11.3 Encounter for screening for infections with a predominantly sexual mode of transmission
CPT/HCPCS: 36415; 85025; 86703; 86762; 86780; 86803; 87086; 87088; 87340; 87491; 87591

== ENCOUNTER 2021-12-05 18:10 | Outpatient (CLI) | payer SELFPAY ==
[2021-12-05 18:19] VITALS: BMI 23.4
[2021-12-05 18:28] VITALS: BP 123/74; PULSE 75
[2021-12-05 18:29] VITALS: TEMP 37.5
--- NOTE | 2021-12-05 20:29 | OB.TRI.NOTE ---
HPI - General HPI Narrative JESS KELLOGG, is a 26 F who presents after fall PFSH PFSH Home Medications PNV [id number]-[id number]-fish oil 2 ea PO DAILY 06/07/19 [History Last Taken 12/04/21 21:00] doxylamine succinate 50 mg PO BID 06/07/19 [History Last Taken 06/06/19 22:00 50 mg] pyridoxine (vitamin B6) 50 mg PO BID 06/07/19 [History Last Taken 12/04/21 21:00] ondansetron HCl [Zofran] 4 mg PO Q6H PRN 12/05/21 [History Last Taken 12/04/21 18:00] Allergy/AdvReac Type Severity Reaction Status Date / Time No Known Allergies Allergy Verified 12/05/21 18:20 Social History Smoking Status: Former smoker History Elective abortions Hx Para 0 Spontaneous abortions Hx # Term Pregnancies Ectopic pregnancies Hx # Pregnancies Multiple births # of living children NST FHR Rate Baby A Baseline: 130 Assessment & Plan (1) : PLAN: Patient arrives after fall at home. Patient fell to hands and knees. No abdominal trauma, no head trauma. Did not lose consciousness. Reassuring heart tones. [place] quiet. Patient feels asymptomatic. Okay to discharge home and follow-up at scheduled appointment
== END 2021-12-05 23:59 | disposition home or self-care (01) ==
LOC: WPOUT 18:13 → WP 18:13
PROVIDERS: Visit Provider Obstetrics & Gynecology
DX: Z34.90 Encounter for supervision of normal pregnancy, unspecified, unspecified trimester (principal); W19.XXXA Unspecified fall, initial encounter; Y93.9 Activity, unspecified; Y92.009 Unspecified place in unspecified non-institutional (private) residence as the place of occurrence of the external cause; Z87.891 Personal history of nicotine dependence
CPT/HCPCS: 59050; 99218; G0378

== ENCOUNTER 2022-01-20 09:27 | Outpatient (CLI) | payer SELFPAY ==
[2022-01-20 09:59] LABS: Hematocrit 36.3 % (37-47); Hemoglobin 12.5 g/dL (12.0-15.0); Mean Corp Hgb Conc 34.4 g/dL (32-36); Mean Corpuscular Hgb 32.5 pg (27.0-32.0); Mean Corpuscular Volume 94.3 fL (81-99); Mean Platelet Vol. 8.9 fl (6.2-12.0); Platelet Count 230 K/mm3 (150-450); RBC Distribution Width CV 13.6 % (11.6-14.6); RBC Distribution Width SD 46.7 fl (35.1-43.9); Red Blood Count 3.85 M/mm3 (4.2-5.4); White Blood Count 7.5 K/mm3 (4.4-11.0)
[2022-01-20 10:36] LABS: Glucose Challenge Gest 1H 50g 89 mg/dL (70-140)
== END 2022-01-20 23:59 | disposition home or self-care (01) ==
LOC: WOBLAB 09:27
PROVIDERS: Referring Provider Student in an Organized Health Care Education/Training Program; Visit Provider Student in an Organized Health Care Education/Training Program
DX: Z34.83 Encounter for supervision of other normal pregnancy, third trimester (principal)
CPT/HCPCS: 36415; 82950; 85027

== ENCOUNTER → 2022-02-17 | Outpatient (CLI) | payer SELFPAY | END | disposition home or self-care (01) | PROVIDERS: Visit Provider Student in an Organized Health Care Education/Training Program | DX: Z34.83 Encounter for supervision of other normal pregnancy, third trimester (principal) | CPT/HCPCS: 36415; 86850 ==

== ENCOUNTER → 2022-04-08 | Outpatient (CLI) | payer SELFPAY | END | disposition home or self-care (01) | LOC: LABSPEC 16:09 | PROVIDERS: Visit Provider Student in an Organized Health Care Education/Training Program | DX: Z36.85 Encounter for antenatal screening for Streptococcus B (principal) | CPT/HCPCS: 87081 ==

== ENCOUNTER 2022-05-01 11:43 | Inpatient (IN) | payer SELFPAY ==
[2022-05-01] VITALS (35 sets, daily range): BP systolic 98–161; BP diastolic 51–94; PULSE 62–114; TEMP 36.8–37.4; O2SAT 92–100; BMI 23.3
[2022-05-01] MEDS: Lactated Ringers 1,000 ML 50 ML IV (11:15)
[2022-05-01 11:54] LABS: Absolute Lymphocyte Count 1.13 X10^3/uL (0.83-4.51); Absolute Neutrophil Count 7.5 X10^3/uL (2.0-7.7); Basophil# 0.03 X10^3/uL; Basophil% 0.3 % (0-1); Eosinophil# 0.01 X10^3/uL; Eosinophils% 0.1 % (0-5); Hematocrit 36.2 % (37-47); Hemoglobin 12.4 g/dL (12.0-15.0); Lymphocyte # 1.13 X10^3/ul (0.83-4.51); Lymphocyte % 12.7 % (19-41); Mean Corp Hgb Conc 34.3 g/dL (32-36); Mean Corpuscular Hgb 32.4 pg (27.0-32.0); Mean Corpuscular Volume 94.5 fL (81-99); Mean Platelet Vol. 9.6 fl (6.2-12.0); Monocyte# 0.27 X10^3/uL; NRBC Flagged by Analyzer 0 % (0-5); Neutrophil # 7.46 X10^3/uL (2.7-7.7); Neutrophil % 83.6 % (47-70); Platelet Count 271 K/mm3 (150-450); RBC Distribution Width CV 12.9 % (11.6-14.6); Red Blood Count 3.83 M/mm3 (4.2-5.4); White Blood Count 8.9 K/mm3 (4.4-11.0)
--- NOTE | 2022-05-01 13:30 | HP.PCM.OB_ITS ---
HPI - General General Date of Admission: 05/01/22 Date of Service: 05/01/22 Chief Complaint: painful contractions HPI Narrative JESS KELLOGG, is a 27 F who presents at 39 3/7 weeks with painful contractions. Denies leaking of fluid or vaginal bleeding. + movement. [facility] Medical History Anxiety Home Medications doxylamine succinate 25 mg tablet 50 mg PO BID nausea 06/07/19 [History Last Taken 04/30/22] 103-folic acid 400 mcg-omeg3 32.5 mg-dha-fish oil chew tablet 2 ea PO DAILY vitamin 06/07/19 [History Last Taken 04/30/22] pyridoxine (vitamin B6) 50 mg tablet 50 mg PO BID nausea 06/07/19 [History Last Taken 05/01/22] ondansetron HCl 4 mg tablet 4 mg PO Q6H PRN Nausea 12/05/21 [History Last Taken 12/04/21 18:00] Allergy/AdvReac Type Severity Reaction Status Date / Time No Known Allergies Allergy Verified 05/01/22 10:28 Surgical History [place] teeth removed Social History Smoking Status: Never smoker History Elective abortions Hx Para 1 Spontaneous abortions Hx # Term Pregnancies Ectopic pregnancies Hx # Pregnancies Multiple births # of living children Past Pregnancies Del. Date Name GA/Weeks Outcome Route Bth Weight Gen Labor Lgth Anesthesia Del Locatn Provider FOB Unknown 38 live - full term 6lb 11oz Female 11 non e [place] Ben[place]os Sergey Delivery Date: Last Updated by: Janett Hancock MD IOL, oligohydramnios NST FHR Rate Baby A Baseline: 120 Variability:: Minimal Accelerations:: None Decelerations:: None NST Reactive:: Non-Reactive FHR Category:: Category II Uterine Activity:: 7/10, irregular pattern Vital Signs Vital Signs Vital Signs: 05/01/22 10:15 05/01/22 10:15 05/01/22 10:15 Temperature 98.2 F Temperature Source Pulse Rate 71 Blood Pressure 134/78 H BP Systolic 134 BP Diastolic 78 Pulse Ox 05/01/22 12:40 05/01/22 12:41 05/01/22 12:41 Temperature 98.6 F Temperature Source Pulse Rate 62 Blood Pressure 128/79 H BP Systolic 128 BP Diastolic 79 Pulse Ox 05/01/22 12:42 05/01/22 12:42 05/01/22 12:40 Temperature Temperature Source Temporal Pulse Rate 64 Blood Pressure BP Systolic BP Diastolic Pulse Ox 99 Weight Weight: 78.018 kg Body Mass Index (BMI) 23.3 Physical Exam Const alert, oriented x3 and no apparent distress HEENT normocephalic Resp normal respiratory effort, normal air movement and clear to auscultation bilaterally Cardio regular rate and regular rhythm GI normal to inspection, nondistended, normoactive bowel sounds, soft to palpation, non-tender and non-distended Inspection: gravid Labs Labs Labs: Blood Type O NEGATIVE Antibody Screen NEGATIVE Hct 36.2 % (37-47) L Hgb 12.4 g/dL (12.0-15.0) Syphilis Total Ab Non-reactive Rubella IgG Antibody Reactive (Nonreactive) Hep Bs Antigen Non-Reactive (Nonreactive) Chlamydia DNA (CHEVY) Negative (Negative) Neisseria gonorrhoeae DNA (CHEVY) Negative (Negative) HIV 1&2 Antibody Non-Reactive (Nonreactive) Glucose 1 Hr 50 gm 89 mg/dL (70-140) Rhogam given: Yes Assessment & Plan (1) 39 weeks gestation of : PLAN: FHR previously Cat I, now Cat II - continuous monitoring GBS neg Expectant management
[2022-05-01] MEDS: LACTATED RINGERS 500 ML 999 ML IV ×2 (13:49→19:10)
--- NOTE | 2022-05-01 14:22 | PCM.PN.OB ---
Subjective Subjective Contraction are q5-10 minutes and more painful. Objective Data Objective Data Vital Signs: Vital Signs Temp Pulse BP Pulse Ox 98.2 F 84 134/94 H 100 05/01/22 14:09 05/01/22 14:09 05/01/22 14:09 05/01/22 14:09 Weight: 78.018 kg Body Mass Index (BMI) 23.3 Intake & Output: Intake and Output for Last 24 Hours 04/29/22 04/30/22 05/01/22 23:59 23:59 23:59 Intake Total 128.33 / 128.33 Balance 128.33 / 128.33 Lab / Micro Data Result Diagrams: 05/01/22 11:15 Labs: Laboratory Results - last 24 hr 05/01/22 11:15: WBC 8.9, RBC 3.83 L, Hgb 12.4, Hct 36.2 L, MCV 94.5, MCH 32.4 H, MCHC 34.3, RDW Std Deviation 44.0 H, RDW Coeff of Oh 12.9, Plt Count 271, MPV 9.6, Immature Gran % (Auto) 0.300, Neut % (Auto) 83.6 H, Lymph % (Auto) 12.7 L, [place] % (Auto) 3.0, Eos % (Auto) 0.1, Baso % (Auto) 0.3, Absolute Neuts (auto) 7.5, Absolute Lymphs (auto) 1.13, Nucleated RBC % 0 05/01/22 11:15: Blood Type O NEGATIVE, Antibody Screen NEGATIVE Micro: Microbiology 05/01/22 11:52 Nasal Secretion SARS-CoV-2 Antigen (Rapid) - Final Physical Exam Narrative GEN - breathing deeply through contractions FHR 120, moderate variability, + accelerations, no decelerations TOCO 1/10 min SVE 7.5/80/-1 Assessment & Plan (1) 39 weeks gestation of : PLAN: Epidural requested per patient request Continue in labor Cat I FHR
[2022-05-01] MEDS: fentaNYL-bupivacaine (epidural) 100 ML BAG EPIDURAL ×2 (15:27→19:21)
--- NOTE | 2022-05-01 16:38 | PN.OBGYN_ITS ---
Subjective Subjective Feels pressure since epidural and less painful, no urge to push at this time. Objective Data Objective Data Vital Signs: Vital Signs Temp Pulse BP Pulse Ox 98.2 F 82 107/59 L 92 05/01/22 14:09 05/01/22 16:03 05/01/22 16:03 05/01/22 16:03 Weight: 78.018 kg Body Mass Index (BMI) 23.3 Intake & Output: Intake and Output for Last 24 Hours 04/29/22 04/30/22 05/01/22 23:59 23:59 23:59 Intake Total 628.33 / 628.33 Balance 628.33 / 628.33 Lab / Micro Data Result Diagrams: 05/01/22 11:15 Labs: Laboratory Results - last 24 hr 05/01/22 11:15: WBC 8.9, RBC 3.83 L, Hgb 12.4, Hct 36.2 L, MCV 94.5, MCH 32.4 H, MCHC 34.3, RDW Std Deviation 44.0 H, RDW Coeff of Oh 12.9, Plt Count 271, MPV 9.6, Immature Gran % (Auto) 0.300, Neut % (Auto) 83.6 H, Lymph % (Auto) 12.7 L, [place] % (Auto) 3.0, Eos % (Auto) 0.1, Baso % (Auto) 0.3, Absolute Neuts (auto) 7.5, Absolute Lymphs (auto) 1.13, Nucleated RBC % 0 05/01/22 11:15: Blood Type O NEGATIVE, Antibody Screen NEGATIVE Micro: Microbiology 05/01/22 11:52 Nasal Secretion SARS-CoV-2 Antigen (Rapid) - Final Physical Exam Narrative GEN - NAD, AAO x 3 FHR 120, moderate variability, + variable and early decelerations SVE 10/100/0 station, cephalic, no palpable membranes TOCO 3-4/10 min Assessment & Plan (1) 39 weeks gestation of : PLAN: Prolonged deceleration shortly after exam with recovery to Cat I FHR. Will labor down for 30-60 min then start pushing
--- NOTE | 2022-05-01 19:07 | PCM.PN.OB ---
Subjective Subjective No complaints. Comfortable with epidural. Objective Data Objective Data Vital Signs: Vital Signs Temp Pulse BP Pulse Ox 98.2 F 69 106/58 L 100 05/01/22 17:10 05/01/22 17:08 05/01/22 17:08 05/01/22 17:08 Weight: 78.018 kg Body Mass Index (BMI) 23.3 Intake & Output: Intake and Output for Last 24 Hours 04/29/22 04/30/22 05/01/22 23:59 23:59 23:59 Intake Total 628.33 / 628.33 Balance 628.33 / 628.33 Lab / Micro Data Result Diagrams: 05/01/22 11:15 Labs: Laboratory Results - last 24 hr 05/01/22 11:15: WBC 8.9, RBC 3.83 L, Hgb 12.4, Hct 36.2 L, MCV 94.5, MCH 32.4 H, MCHC 34.3, RDW Std Deviation 44.0 H, RDW Coeff of Oh 12.9, Plt Count 271, MPV 9.6, Immature Gran % (Auto) 0.300, Neut % (Auto) 83.6 H, Lymph % (Auto) 12.7 L, [place] % (Auto) 3.0, Eos % (Auto) 0.1, Baso % (Auto) 0.3, Absolute Neuts (auto) 7.5, Absolute Lymphs (auto) 1.13, Nucleated RBC % 0 05/01/22 11:15: Blood Type O NEGATIVE, Antibody Screen NEGATIVE Micro: Microbiology 05/01/22 11:52 Nasal Secretion SARS-CoV-2 Antigen (Rapid) - Final Physical Exam Narrative GEN - NAD, AAO x 3 FHR 130, minimal variability, + 10 x 10 accelerations, + prolonged deceleration TOCO 4/10 min SVE FD/+1 station, RAEANN Assessment & Plan (1) 39 weeks gestation of : PLAN: Labor down for 20-30 minutes in hands and knees and reassess station
[2022-05-01] MEDS: Lactated Ringers 1,000 ML 200 ML IV (21:43)
[2022-05-01] MEDS: Oxytocin 30 units/NS 500 ml 30 UNITS/500 ML IV.SOLN 334 UNITS IV (22:55)
--- NOTE | 2022-05-01 23:14 | EX.PCM.OBRPT ---
Assessment & Plan (1) 39 weeks gestation of : (2) (spontaneous vaginal delivery): Vaginal Delivery Maternal Presentation Maternal Presentation: Active Labor Operative Information Date of Procedure: 05/01/22 Pre-Operative Diagnosis: 1. 39 3/7 weeks gestation 2. Prolonged second stage Post-Operative Diagnosis: 1. 39 3/7 weeks gestation 2. Prolonged second stage Surgery / Procedure Performed: Spontaneous Vaginal Delivery Type of Anesthesia: Epidural Anesthesiologist: Carlos Gamez Drain: Nayak to straight drain Estimated Blood Loss: 150 ml Time of Delivery: 22:53 Findings Description of Procedure: Patient was FD/+2 after hands and knees positioning. She continued to push on her side and epidural was turned off with greater descent occurring. After approximately 4.5 hours of second stage (total 3 hours of pushing) I offered vacuum assistance with review of risks, benefits and indications. Patient declined and indicated desire to continue unassisted maternal expulsive efforts. Patient continued to push and delivered a vigorous male in OA over an intact perineum. He was placed on the maternal abdomen and further attended by nursery personnel. The cord was doubly clamped and cut. Cord blood specimen was obtained. The placenta delivered spontaneously and appeared intact on inspection. Fundus was firm. Sponge counts correct x 2. Presentation: Vertex Amniotic Membrane Rupture Type: Spontaneous Amniotic Fluid Description: Clear Placental Delivery Description: Spontaneous Placenta Disposition: [facility] Cord Vessel Description: 3 Vessels Cord Entanglement: Around neck x 1, loose Nuchal Cord Compression: Without compression Infant A Gender: Male (1 minute): 9 (5 minute): 9 Delayed Cord Clamping: Yes Post Vaginal Delivery Medications Given After Delivery: IV Pitocin Episiotomy Description: None Laceration: None Complication Complications: None
[2022-05-01] MEDS: Ibuprofen 600 MG Tablet PO (23:25)
[2022-05-02] VITALS (17 sets, daily range): BP systolic 113–139; BP diastolic 55–86; PULSE 63–123; RESP 16–18; TEMP 36.1–37; O2SAT 98–99
[2022-05-02] MEDS: Acetaminophen 500 MG Tablet 1000 MG PO ×3 (05:54→19:42)
--- NOTE | 2022-05-02 07:43 | PN.OBGYN_ITS ---
Objective Data Objective Data day one. Doing well. Lochia minimal. Pain controlled. Vital Signs: Vital Signs Temp Pulse Resp BP Pulse Ox O2 Del Method 97.0 F L 85 16 137/78 H 100 Room Air 05/02/22 03:51 05/02/22 03:52 05/02/22 03:51 05/02/22 03:52 05/01/22 19:45 05/02/22 03:51 Oxygen Delivery Method Room Air Weight: 78.018 kg Body Mass Index (BMI) 23.3 Intake & Output: Intake and Output for Last 24 Hours 04/30/22 05/01/22 05/02/22 23:59 23:59 23:59 Intake Total 2412.57 / 2412.57 327.43 / 327.43 Output Total 1200 / 1200 1900 / 1900 Balance 1212.57 / 1212.57 -1572.57 / -1572.57 Lab / Micro Data Attestation: I reviewed the patient's lab results. Result Diagrams: 05/01/22 11:15 Labs: Laboratory Results - last 24 hr 05/01/22 11:15: WBC 8.9, RBC 3.83 L, Hgb 12.4, Hct 36.2 L, MCV 94.5, MCH 32.4 H, MCHC 34.3, RDW Std Deviation 44.0 H, RDW Coeff of Oh 12.9, Plt Count 271, MPV 9.6, Immature Gran % (Auto) 0.300, Neut % (Auto) 83.6 H, Lymph % (Auto) 12.7 L, [place] % (Auto) 3.0, Eos % (Auto) 0.1, Baso % (Auto) 0.3, Absolute Neuts (auto) 7.5, Absolute Lymphs (auto) 1.13, Nucleated RBC % 0 05/01/22 11:15: Blood Type O NEGATIVE, Antibody Screen NEGATIVE Micro: Microbiology 05/01/22 11:52 Nasal Secretion SARS-CoV-2 Antigen (Rapid) - Final Physical Exam Const alert, oriented x3 and no apparent distress HEENT normocephalic Head and Scalp: atraumatic Neck full ROM Resp normal respiratory effort Cardio regular rate GI normal to inspection, nondistended, normoactive bowel sounds GI Narrative: Uterus 2 cm below umbilicus Back/Spine normal ROM Extremity normal to inspection Extremity Narrative: Minimal pedal edema Neuro no focal motor deficits and no sensory deficits noted Psych mental status grossly normal and affect normal Assessment & Plan (1) (spontaneous vaginal delivery): PLAN: day 1 s/p vacuum assisted vaginal delivery. Breast-feeding going well. Discharge home day 1-2.
[2022-05-02] MEDS: Ibuprofen 600 MG Tablet PO ×2 (09:19→15:47)
[2022-05-03 02:00] VITALS: BP 123/78; PULSE 62; RESP 14; TEMP 36.3
[2022-05-03] MEDS: Ibuprofen 600 MG Tablet PO ×2 (02:07→13:20)
[2022-05-03 09:00] VITALS: BP 118/74; PULSE 80; RESP 18; TEMP 36.4; O2SAT 94
[2022-05-03] MEDS: Acetaminophen 500 MG Tablet 1000 MG PO (09:05)
--- NOTE | 2022-05-03 09:10 | PCM.PN.OB ---
Subjective Subjective Feeling tired and sore. Lochia minimal. Breast-feeding going well. Objective Data Objective Data Vital Signs: Vital Signs Temp Pulse Resp BP Pulse Ox O2 Del Method 97.3 F L 62 14 123/78 H 99 Room Air 05/03/22 02:00 05/03/22 02:00 05/03/22 02:00 05/03/22 02:00 05/02/22 15:50 05/03/22 02:00 Oxygen Delivery Method Room Air Weight: 78.018 kg Body Mass Index (BMI) 23.3 Intake & Output: Intake and Output for Last 24 Hours 05/01/22 05/02/22 05/03/22 23:59 23:59 23:59 Intake Total 2412.57 / 2412.57 327.43 / 327.43 Output Total 1200 / 1200 2700 / 2700 Balance 1212.57 / 1212.57 -2372.57 / -2372.57 Lab / Micro Data Result Diagrams: 05/01/22 11:15 Micro: Microbiology 05/01/22 11:52 Nasal Secretion SARS-CoV-2 Antigen (Rapid) - Final Physical Exam Const alert, oriented x3 and no apparent distress HEENT normocephalic Head and Scalp: atraumatic Neck full ROM Resp normal respiratory effort Cardio regular rate GI normal to inspection, nondistended, normoactive bowel sounds GI Narrative: Uterus 2 cm below umbilicus Back/Spine normal ROM Extremity normal to inspection Extremity Narrative: Minimal pedal edema Neuro no focal motor deficits and no sensory deficits noted Psych mental status grossly normal and affect normal Assessment & Plan (1) (spontaneous vaginal delivery): PLAN: day 2 status post . Breast-feeding. Home today.
--- NOTE | 2022-05-03 09:11 | DCINST_ITS ---
Discharge Instructions Diet Discharge Diet: No restrictions Activity Discharge Activity: Return to Normal Activity and May Shower May resume sexual activity in: 4-6 weeks Weight Bearing Status: Weight bearing as tolerated Lifting Restrictions: No greater than 25 pounds Dressing / Incision Call your doctor if you observe: Fever of 101 or Higher, Change in Color, Inability to urinate, Using more than 1 pad per hour, Shortness of breath, Dizziness, Swelling in the ankles, Chest pain and Calf discomfort Follow Up Care Please Follow Up With: Tammie Uribe DO When: 2-week telehealth appointment and 6-week visit Test Results: Test results from this visit will be discussed in further detail at your follow- up appointment, if applicable. Discharge Plan Admission Admit Date/Time: 05/01/22 11:43 Primary Reason for Your Visit: Vaginal delivery Attending Provider: Janett Allred Primary Care Provider: Care Physician,Katrina Primary Discharge Orders/Prescriptions Prescriptions: No Action pyridoxine (vitamin B6) 50 MG tablet 50 mg PO BID doxylamine succinate 25 MG tablet 50 mg PO BID PNV 475-eqtob-vwkwr-3-fish oil 1 EACH tablet,chewable 2 ea PO DAILY ondansetron HCl [Zofran] 4 mg Tablet 4 mg PO Q6H PRN (Reason: Nausea) Referrals / Follow Up: Care Physician,No Primary [Primary Care Provider] - Disposition Disposition (needs filled in before D/C Order can be placed): Home, Self Care
--- NOTE | 2022-05-03 12:45 | NURSING ---
Okay for discharge per social work.
[2022-05-03 13:00] VITALS: BP 132/88; PULSE 77; RESP 18; TEMP 36.4; O2SAT 94
--- NOTE | 2022-05-03 13:35 | NURSING ---
Pt to call [facility] next week for virtual 2 week follow up then 6 week follow up in office appointment.
--- NOTE | 2022-05-03 17:08 | CM.ED ---
Addendum entered by Irina Joe 05/03/22 17:21: NB's apgars: 99 Irina Joe CELL TENDER JOSE CARLOS Original Note: SW Note Referral Source: MD Reason for referral: History of Post Anxiety Patient agreed to be interviewed in the presence of the fob, Sergey. Patient was observed to be bright and reactive. Appeared to be appropriately bonding with nb. SW spoke to RN Siri who voiced no concerns regarding patient. Mom: Tammie PNC: Mychal Control: Haven't decided yet Baby: Lazaro Anthony : 05/01/[birth year] Weight: 7lbs 1 ounce Placement Specialist: Dr. Reyes Breast feeding. Patient reports it is going pretty good Patient has one other child, a daughter that is 2 years old. Housing: Patient resides in the house with the fob and their 2 children (nb and 2 year old) Transportation: Patient reports she has access to car and can drive a car Supplies: Patient reports that she has bassinet, car seat, crib, diapers, clothes and all of it. Supports: Patient said that her supports include her , her mother in law that lives next door and [facility]. All of the family is local. Education: Patient graduated high school. No college or technical school. No learning issues. 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 She is not employed outside the home Agency Involvement: NO JFS, No WIC or HMG. NO counseling or legal issues. NO CPS Patient SI/HI screen was negative. 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 He said that he is not planning to stay at home unless he is needed. FOB reports no MH/AOD or DV issues Patient reports she had anxiety following the of her daughter. Patient said that she thinks that it was a mixture of normal anxiety with a little more. Patient said I was always worried and that she was not comfortable with being away from her child. Patient said that she never took medication but attempted some natural remedies such as essential oils which she felt were helpful. Patient said that she kept asking for help during that period. Patient reports that she feels that this post period will be different as she has the knowledge of what to expect and has been through this period previously with her daughter. Patient denied any SI/HI. Patient was educated on PPD, Shaken Baby and Safe Sleep. Patient reports no alcohol or drug use. Patient reports no questions or concerns. Patient was provided with educational information on PPD and Post Anxiety. RN updated. Plan: Home at discharge. Irina BRANCH
== END 2022-05-03 13:55 | disposition home or self-care (01) | DRG 807 ==
LOC: WPOUT 11:43 → WP 11:43
PROVIDERS: Admitting Provider Obstetrics & Gynecology; Visit Provider Obstetrics & Gynecology
DX: O69.81X0 Labor and delivery complicated by cord around neck, without compression, not applicable or unspecified (principal); Z37.0 Single live birth; O76 Abnormality in fetal heart rate and rhythm complicating labor and delivery; Z3A.39 39 weeks gestation of pregnancy
CPT/HCPCS: 59025; 59050; 85025; 86850; 86900; 86901; 87426; 99218; J7120; G0378